=== PATIENT | female | born 1970 | race Caucasian/White ===

== ENCOUNTER 2024-12-19 02:04 | Emergency (ER) | payer BC | END 2024-12-19 02:32 | disposition home or self-care (01) | LOC: CSHERS 02:04 | DX: L03.115 Cellulitis of right lower limb (principal); F17.210 Nicotine dependence, cigarettes, uncomplicated | CPT/HCPCS: 99282 ==

== ENCOUNTER 2025-08-20 16:47 | Emergency (ER) | payer BC | END 2025-08-20 18:31 | disposition home or self-care (01) | LOC: CSHERS 16:47 | DX: M79.675 Pain in left toe(s) (principal); F17.210 Nicotine dependence, cigarettes, uncomplicated | CPT/HCPCS: 99283 ==